=== PATIENT | male | born 1980 | race Caucasian/White ===

== ENCOUNTER → 2022-04-03 11:18 | Outpatient (BNVA) | payer MEDICAID, SELFPAY | PROVIDERS: PCP Family Medicine; Referring Provider Family Medicine; Visit Provider Internal Medicine Cardiovascular Disease | DX: R00.2 Palpitations (principal); R07.89 Other chest pain | CPT/HCPCS: 93005; 99202 ==

== ENCOUNTER 2024-12-31 10:23 | Outpatient (REF) | payer MEDICAID, SELFPAY ==
[2024-12-31 11:59] LABS: Hematocrit 36.5 % (42.0-52.0); Hemoglobin 12.2 g/dl (14.0-18.0); Mean Corpuscular HGB Conc 33.4 g/dl (31.0-36.0); Mean Corpuscular Hemoglobin 30.2 pg (27.0-33.0); Mean Corpuscular Volume 90.3 fL (80.0-98.0); NRBC Abs Auto 0.000 X10*3/uL (0.0-0.012); NRBC Pct Auto 0.0 /100WBC (0.0-0.2); Platelet Count 265 X10*3/uL (160-400); Red Blood Count 4.04 X10*6/uL (4.60-5.80); White Blood Count 6.2 X10*3/uL (4.8-10.8)
[2024-12-31 12:17] LABS: Total Hemoglobin (HGBA1C) 3240.8270 umol/L
[2024-12-31 12:18] LABS: Alanine Aminotransferase 64 U/L (0-40); Albumin Level 4.0 g/dL (3.5-5.0); Alkaline Phosphatase 57 U/L (39-117); Anion Gap 9 (12-20); Aspartate Amino Transferase 111 U/L (5-37); Blood Urea Nitrogen 22 mg/dL (9-16); Calcium 8.9 mg/dL (8.4-10.2); Carbon Dioxide 28 mmol/L (22-29); Chloride 108 mmol/L (96-108); Cholesterol 123 mg/dL (<200); Estimated Glomerular Filt Rate > 60; HDL Cholesterol 41 mg/dL (>40); Potassium 4.2 mmol/L (3.3-5.1); Sodium 141 mmol/L (135-145); Total Protein 6.3 g/dL (6.5-8.0); Triglycerides 89 mg/dL (<150)
[2024-12-31 12:37] LABS: Free T4 (Free Thyroxine) 0.88 ng/dL (0.71-1.85); Thyroid Stimulating Hormone 0.44 uIU/mL (0.32-4.0)
[2024-12-31 12:50] LABS: ~Hepatitis A Antibody IgG 4.03 S/CO (0.00-0.99)
[2024-12-31 16:00] LABS: Iron 128 mcg/dL (45-160); Percent Iron Saturation 54 % (15-50); Total Iron Binding Capacity 236 mcg/dL (228-428); Unsaturated Iron Binding 108 ug/dL
[2024-12-31 16:14] LABS: Ferritin 68 ng/mL (20-250)
[2025-01-01 04:16] LABS: HBS Num1 28.06 mIU/mL (0-7.99); HBc Num1 0.07 S/CO (0.00-0.79); HBsAGNum1 0.44 S/CO (0.00-0.99); HIV Num 1 0.10 S/CO (0.00-0.99); Hepatitis B Surface Antigen Negative (Negative); ~HepC Num1 0.11 S/CO (0.00-0.79); ~Hepatitis B Surface Antibody REACTIVE (Nonreactive); ~Hepatitis C Antibody Nonreactive (Nonreactive)
[2025-01-03 07:44] LABS: TS Negative Control Passed; TS Panel A 0; TS Panel B 0; TS Positive Control Passed; TSpotTB Negative (Negative)
== END 2024-12-31 10:24 | disposition home or self-care (01) ==
LOC: HO.HHCL 10:23
PROVIDERS: PCP Family Medicine; Visit Provider Family Medicine
DX: Z11.4 Encounter for screening for human immunodeficiency virus [HIV] (principal); Z11.1 Encounter for screening for respiratory tuberculosis; Z11.59 Encounter for screening for other viral diseases; Z11.3 Encounter for screening for infections with a predominantly sexual mode of transmission; L03.114 Cellulitis of left upper limb; N50.819 Testicular pain, unspecified; D64.9 Anemia, unspecified; G89.29 Other chronic pain
CPT/HCPCS: 36415; 80048; 80061; 80076; 82306; 82728; 83036; 83540; 84439; 84443; 85027; 86481; 86592; 86704; 86706; 86708; 86803; 87070; 87077; 87186; 87205; 87340; 87389

== ENCOUNTER 2025-02-11 10:11 | Outpatient (REF) | payer MEDICAID, SELFPAY ==
--- NOTE | ~2025-02-11 | XR_ITS ---
EXAMINATION: XR THORACIC SPINE CLINICAL INFORMATION: pain COMPARISON: None available. TECHNIQUE: AP lateral and swimmer's projection. FINDINGS: No acute cortical disruption or malalignment. Small marginal osteophyte formation in the mid to lower thoracic spine. No lytic or blastic lesions. Vascular clips right upper quadrant abdomen likely prior laparoscopic cholecystectomy. XR/XR thoracic spine 2V IMPRESSION: Mild lower thoracic spondylosis. EXAMINATION: XR LUMBOSACRAL SPINE CLINICAL INFORMATION: Mid back pain radiating to low back. COMPARISON: None available. TECHNIQUE: AP and lateral views. FINDINGS: Endplate sclerosis decreased intervertebral disc height and marginal osteophyte formation at L5-S1 and to a lesser extent L4-5 and L3-4 levels. Levoconvex curvature, mild. No acute cortical disruption or malalignment. Rudimentary ribs at T12. Vascular clips right upper quadrant abdomen. No lytic or blastic lesions. IMPRESSION: Multilevel spondylosis pronounced at L5-S1. Electronically signed by: Corey Quinonez MD 02/11/2025 11:48 AM VJ
--- NOTE | ~2025-02-11 | XR_ITS ---
EXAMINATION: XR THORACIC SPINE CLINICAL INFORMATION: pain COMPARISON: None available. TECHNIQUE: AP lateral and swimmer's projection. FINDINGS: No acute cortical disruption or malalignment. Small marginal osteophyte formation in the mid to lower thoracic spine. No lytic or blastic lesions. Vascular clips right upper quadrant abdomen likely prior laparoscopic cholecystectomy. XR/XR lumbar spine 2-3V IMPRESSION: Mild lower thoracic spondylosis. EXAMINATION: XR LUMBOSACRAL SPINE CLINICAL INFORMATION: Mid back pain radiating to low back. COMPARISON: None available. TECHNIQUE: AP and lateral views. FINDINGS: Endplate sclerosis decreased intervertebral disc height and marginal osteophyte formation at L5-S1 and to a lesser extent L4-5 and L3-4 levels. Levoconvex curvature, mild. No acute cortical disruption or malalignment. Rudimentary ribs at T12. Vascular clips right upper quadrant abdomen. No lytic or blastic lesions. IMPRESSION: Multilevel spondylosis pronounced at L5-S1. Electronically signed by: Corey Quinonez MD 02/11/2025 11:48 AM VJ
--- OUTSIDE RECORDS SUMMARY | 2025-02-11 09:30 | XMS_ITS | Encounter Summary ---
Author Organization [employer] Address [address] [place] [address] [address] [place] [address] Care Team Providers Care Mass Spectroscopist Name Role Phone Marixa Lopez DO Primary Care Provider Reason for Visit * Reason Comments Annual Exam Encounter Details Date Type Department Care Team ([facility] st Contact Info) Description 02/11/2025 9:30 AM EST Office Visit [facility] [address] [place], [place] [phone] Marixa Lopez DO [address] [place], [place] [phone] Routine history and physical examination of adult (Primary Dx); Major depression, recurrent, chronic (CMS/HCC); Anxiety; Uncomplicated opioid dependence (CMS/HCC) (HCC); Anemia, unspecified type; Elevated LFTs; Impetigo; Acute mid back pain; Decreased visual acuity; BMI 22.0-22.9, adult Social History Tobacco Use Types Packs/Day Years Used Date Smoking Tobacco: Former Cigarettes Alcohol Use Standard Drinks/Week Comments Never 0 (1 standard drink = 0.6 oz pur e alcohol) Depression Answer Date Recorded Patient Health Questionnaire-9 Score 13 12/31/2024 Patient Health Questionnaire-9 Score 13 12/31/2024 Last PHQ-9: Questionnaire Data Not on file 1 Housing Stability Answer Date Recorded What is your housing situation today? I have benjamin de luna 09/19/[address] you li ve. Do you have problems with any of the following? None of the above 09/19/2023 Food Insecurity Answer Date Recorded Within the past 12 months, y ou worried that your food would run out before you got money to buy more: Never True 09/19/2023 Within the past 12 months,th e food you bought just didn't last and you didn't have enough money to get more: Never True 02/2024 Transportation Answer Date Recorded In the past 12 months, has l ack of transportation kept you from medical appts, meetings, work or from getting things needed for daily living? No 09/19/2023 Utilities Answer Date Recorded In the past 12 months, has t he electric, gas, oil or water company threatened to shut off services in your home? No 09/19/2023 Depression Answer Date Recorded Patient Health Questionnaire-2 Score 2 12/31/2024 Internet Access Answer Date Recorded Internet Access Q1 Yes 11/10/2023 Internet Access Q2 Not on file 11/10/2023 Sex and Gender Information Value Date Recorded Sex Assigned at Male 01/07/2022 10:18 AM EDT Legal Sex Male 10:18 AM EDT Gender Identity Male 01/07/2022 10:18 AM EDT Sexual Orientation Straight 01/07/2022 10 :18 AM EDT documented as of this encounter Last Filed Vital Signs Vital Sign Reading Time Taken Comments Blood Pressure 120/60 02/11/2025 9:40 AM EST Pulse 60 02/11/2025 9:40 AM EST Temperature 36.2 C (97.1 F) 02/11/2025 9:40 AM EST Respiratory Rate 20 02/11/2025 9:40 AM EST Oxygen Saturation - - Inhaled Oxygen Concentration - - Weight 57.6 kg (127 lb) 02/11/2025 9:40 AM EST Height 160 cm (5' 3 ) 02/11/2025 9:40 AM EST Body Mass Index 22.5 02/11/2025 9:40 AM EST documented in this encounter Plan of Treatment Scheduled Orders Name Type Priority Associated Diagnoses Orde r Schedule XR Thoracic Spine 2 Views Imaging Routine Acute mid back pain Expected: 02/11/2025, Expires: 02/11/2026 XR Lumbar Spine 2-3 Views Imaging Routine Acute mid back pain Expected: 02/11/2025, Expires: 02/11/2026 documented as of this encounter Visit Diagnoses Diagnosis Routine history and physical examination of adult- Primary Major depression, recurrent, chronic (CMS/HCC) Anxiety Anxiety state, unspecified Uncomplicated opioid dependence (CMS/HCC) (HCC) Anemia, unspecified type Elevated LFTs Other abnormal blood chemistry Impetigo Acute mid back pain Decreased visual acuity BMI 22.0-22.9, adult documented in this encounter Additional Health Concerns Assessment Noted Time PHQ-9 Depression Total Score: 13 12/31/ 025 10:00 AM EDT documented as of this encounter Care Teams Mass Spectroscopist Relationship Specialty Start Date End Date Marixa Lopez DO [address] [place] [id number] PCP - General Family Medicine 03/10/18 documented as of this encounter
[2025-02-11 11:25] LABS: MANUAL DIFF FLAG NO
--- OUTSIDE RECORDS SUMMARY | 2025-02-11 11:36 | XMS_ITS | Clinical Summary ---
Author Organization [employer] Address [address] [facility] [address] [place] [address] Care Team Providers Care Lipstick Molder Name Role Phone JessicaMarixa Primary Care Provider [phone] Allergies No known active allergies Medications sulfamethoxazol e-trimethoprim (Bactrim DS) 800-160 MG tablet Take 1 tablet by mouth 2 times daily for 7 days. 14 tablet 5 02/19/20 25 Active acetaminophen (Tylenol 8 Hour) 650 MG ER tablet Take 1 tablet (650 mg) by mouth every 8 (eight) hours if needed for mild pain. Do not crush, chew, or split. 40 tablet 1 5 03/13/19 26 Active naproxen (Naprosyn) 500 MG tablet Take 1 tablet (500 mg) by mouth if needed in the morning and at bedtime for mild pain. 40 tablet 1 5 02/12/20 26 Active Diclofenac Sodium 1 % gel Apply 2 g topically if needed in the morning, at noon, in the evening, and at bedtime (pain). 150 g 3 5 Active baclofen (Lioresal) 10 MG tablet Take 1 tablet (10 mg) by mouth if needed in the morning, at noon, and at bedtime for muscle spasms. 60 tablet 1 5 04/12/19 26 Active sulfamethoxazol e-trimethoprim (Bactrim DS) 800-160 MG tablet Take 1 tablet by mouth 2 times daily for 7 days. 14 tablet 5 01/13/20 25 Active Problems Problem Noted Date Diagnosed Date Drug-induced constipation 09/12/2023 Cocaine abuse 07/08/2017 Opioid dependence 07/08/2017 Vitamin D deficiency 06/19/2015 Anxiety 04/21/2015 Chronic low back pain 04/21/2015 Gastroesophageal reflux disease 04/21/2015 Alcohol dependence 04/21/2015 BMI 22.0-22.9, adult 04/21/2015 Major depression, recurrent, chronic 04/21/2015 Resolved Problems Problem Noted Date Diagnosed Date Resolved Date Testicular pain, right 09/12/202312/31 Testicular pain, left 09/12/20232024 Assessment & Plan (09/16/2023 7:36 AM EDT): Patient with acute onset of testicular pain two days previous with swelling/tenderness of epidydimal head. He needs urgent imaging to rule out torsion or mass, which cannot be done from outpatient setting due to insurance - referred urgently to ER -recommend tight boxer briefs/jock strap for support - NSAID/Tylenol combination for better pain control - followup after ER as needed, could be referred to [facility] if indicated based on imaging results Encounters Date Type Department Care Team Description 02/11/2025 9:30 AM EST Office Visit [address] [address] Marixa Lopez, Routine history and physical examination of adult (Primary Dx); Major depression, recurrent, chronic (CMS/HCC); Anxiety; Uncomplicated opioid dependence (CMS/HCC) (HCC); Anemia, unspecified type; Elevated LFTs; Impetigo; Acute mid back pain; Decreased visual acuity; BMI 22.0-22.9, adult 02/11/2025 Travel 02/09/2025 Telephone [facility] [address] [place] [phone] Marixa Lopez, Chart Prep 01/31/[address] [address] Marixa Lopez, Aidan recall 01/16/[address] [address] Marixa Lopez, Results 01/05/[address] [address] Marixa Lopez DO 12/31/2024 9:30 AM EDT Office Visit [facility] [address] [place] [phone] Marixa Lopez, Cellulitis of left forearm (Primary Dx); Chronic pain in testicle; Major depression, recurrent, chronic (CMS/HCC) 12/31/2024 Orders Only [facility] [address] [place] [phone] Marixa Lopez, 12/31/2024 Telephone [facility] [address] [place] [phone] Marixa Lopez, Results 12/31/2024 Travel 12/30/[address] [address] Marixa Lopez DO Nurse Triage from Last 3 Months Immunizations Immunization Administration Dates Next Due Hep A, ped/adol, 2 dose 10/18/2008,08/06/2007 Hep B, Adolescent or Pediatric 11/17/2008,2008,08/06/2007 Influenza, IIV3, injectable 12/26/2008 MMR 02/13/2010 TD (adult), 2 Lf tetanus tox oid, preservative free, adsorbed 08/06/2007 Tdap 04/23/2021,05/28/2010 Family History Medical History Relation Name Comments Substance use Father Diabetes Maternal Grandmother Heart disease Maternal Grandmother HIV Mother Diabetes Mother's Sister Relation Name Status Comments Father Maternal Grandmother Mother Mother's Sister Social History Tobacco Use Types Packs/Day Years Used Date Smoking Tobacco: Former Cigarettes Tobacco Cessation:Counseling Given: Not Answered Alcohol Use Standard Drinks/Week Comments Never 0 [...] Orientation Straight 01/07/2022 10 :18 AM EDT Last Filed Vital Signs Vital Sign Reading Time Taken Comments Blood Pressure 120/60 02/11/2025 9:40 AM EST Pulse 60 02/11/2025 9:40 AM EST Temperature 36.2 C (97.1 F) 02/11/2025 9:40 AM EST Respiratory Rate 20 02/11/2025 9:40 AM EST Oxygen Saturation 97% 12/31/2024 9:56 AM EDT Inhaled Oxygen Concentration - - Weight 57.6 kg (127 lb) 02/11/2025 9:40 AM EST Height 160 cm (5' 3 ) 02/11/2025 9:40 AM EST Body Mass Index 22.5 02/11/2025 9:40 AM EST Plan of Treatment Health Maintenance Due Date Last Done Comments Disability Screening 1982 Alcohol/Substance Use Screening 1994 Family Planning (PISQ) 1997 HPV Vaccines (1 - Male 3-dos e series) 1997 Hepatitis B Vaccines (1 of 3 - 19+ 3-dose series) 2001 11/17/2008, 10/18/2008, 08/06/2007 Pneumococcal Vaccine: Pediatrics (0 to 5 Years) and At-Risk Patients (6 to 49) Years (1 of 2 - PCV) 2001 SDOH Screening 09/18/2024 09/19/2023 COVID-19 Vaccine (2 - 2024-2 6 season) 2024 02/11/2021 Influenza Vaccine (#1) 2024 12/26/2008 Depression Monitoring 07/01/2025 12/31/2024 , 12/31/2024 Tobacco Screening 02/11/2026 02/11/2025 Lipid Panel 12/31/2029 12/31/2024, 04/23/2021 DTaP/Tdap/Td Vaccines (3 - T d or Tdap) 04/23/2031 04/23/2021, 05/28/2010, 08/06/2007 Zoster Vaccines (1 of 2) 2032 RSV Patients and Patients Aged 60 years or older (1 - 1-dose 75+ series) 2057 Hepatitis A Vaccines Aged Out 10/18/2008, 08/06/2007 No longer eligible based on patient's age to complete this topic HIV Screening Completed 12/31/2024, 04/23/2021 Hepatitis C Screening Completed 12/31/2024 , 04/23/2021 HIB Vaccines Aged Out No longer eligi ble based on patient's age to complete this topic IPV Vaccines Aged Out No longer eligi ble based on patient's age to complete this topic Meningococcal B Vaccine Aged Out No l onger eligible based on patient's age to complete this topic Meningococcal Vaccine Aged Out No nicole katheryn eligible based on patient's age to complete this topic RSV under 20 months Aged Out No longe r eligible based on patient's age to complete this topic Rotavirus Vaccines Aged Out No longer eligible based on patient's age to complete this topic Procedures Procedure Name Priority Date/Time Associated Diagnosis Comments GRAM STAIN RESULT (NON ORDERABLE) Routine 12/31/2024 1:16 PM EDT WOUND CULTURE Routine 12/31/2024 1:16 PM EDT IRON AND TOTAL IRON BINDING CAPACITY Routine 12/31/2024 10:31 AM EDT Low hemoglobin FERRITIN Routine 12/31/2024 10:31 AM EDT Low hemoglobin T-SPOT(R).TB Routine 12/31/2024 10:31 AM EDT Cellulitis of left forearm Chronic pain in testicle HEPATITIS B CORE AB TOTAL Routine 12/31/2024 10:31 AM EDT Cellulitis of left forearm Chronic pain in testicle HEPATITIS A ANTIBODY, TOTAL Routine 12/31/2024 10:31 AM EDT Cellulitis of left forearm Chronic pain in testicle HEPATITIS B SURFACE ANTIBODY, QUALITATIVE Routine 12/31/2024 10:31 AM EDT Cellulitis of left forearm Chronic pain in testicle RPR (MONITOR) W/REFL TITER Routine 12/31/2024 10:31 AM EDT Cellulitis of left forearm Chronic pain in testicle HEPATITIS C AB W/REFL TO HCV RNA, QN, PCR Routine 12/31/2024 10:31 AM EDT Cellulitis of left forearm Chronic pain in testicle HIV 1/2 ANTIGEN/ANTIBODY, FOURTH GENERATION W/RFL Routine 12/31/2024 10:31 AM EDT Cellulitis of left forearm Chronic pain in testicle HEPATITIS B SURFACE ANTIGEN, EIA Routine 12/31/2024 10:31 AM EDT Cellulitis of left forearm Chronic pain in testicle BASIC METABOLIC PANEL Routine 12/31/2024 10:31 AM EDT Cellulitis of left forearm Chronic pain in testicle CBC Routine 12/31/2024 10:31 AM EDT Cellulitis of left forearm Chronic pain in testicle HEMOGLOBIN A1C Routine 12/31/2024 10:31 AM EDT Cellulitis of left forearm Chronic pain in testicle HEPATIC FUNCTION PANEL Routine 12/31/2024 10:31 AM EDT Cellulitis of left forearm Chronic pain in testicle VITAMIN D,25-OH,TOTAL,IA Routine 12/31/2024 10:31 AM EDT Cellulitis of left forearm Chronic pain in testicle TSH Routine 12/31/2024 10:31 AM EDT Cellulitis of left forearm Chronic pain in testicle LIPID PANEL, STANDARD Routine 12/31/2024 10:31 AM EDT Cellulitis of left forearm Chronic pain in testicle T4, FREE Routine 12/31/2024 10:31 AM EDT Cellulitis of left forearm Chronic pain in testicle from Last 3 Months Results * Gram Stain Result (12/31/2024 1:16 PM EDT) 12/31/2024 1:16 PM EDT 12/31/2024 5:04 PM EDT Comment:Arm Lt Narrative [facility] - 01/02/2025 8:03 AM EDT CELLULITIS OF LEFT FOREARM Gram stain results: 1+ polys 3+ epithelial cells 2+ Gram-positive cocci CELLULITIS OF LEFT FOREARM Staphylococcus aureus Quant Org ID 2+ Staphylococcus aureus: Clindamycin <=0.25(S) Staphylococcus aureus: Erythromycin <=0.25(S) Staphylococcus aureus: Levofloxacin <=0.12(S) Staphylococcus aureus: Oxacillin 0.5(S) Staphylococcus aureus: Penicillin-G >=0.5(R) Staphylococcus aureus: Tetracycline <=1(S) Staphylococcus aureus: Trimethoprim/Sulfamethoxazole <=10(S) Specimen Source: Arm Left us Marixa Lopez DO HISTORICAL/NON ORDERABLE LAB S Final Result [facility] [address] [place] [phone] * (ABNORMAL) Vitamin D, 25-Hydroxy, Total, Immunoassay (12/31/2024 10:31 AM EDT) Vitamin D 25-OH Total 25.6(L) >30 ng/mL [facility] Comment: Health Based Reference Values*< 20 ng/mL Zgzkasnwd44-24 ng/mL Insufficient> 30 ng/mL Sufficient*Roberto HILL. N Engl J Med. 2007;357:266-280There is no well-established upper level of normal vitamin Dlevels. Some laboratories use 50 ng/mL as an upper limit ofnormal. However, toxicity is patient-dependent and may occurat any level. Careful correlation with the patient'spresentation is necessary and, if there is concern forvitamin D toxicity, treatment should be consideredirrespective of the serum level.Care must be taken in interpreting Vitamin D results fromdifferent laboratories and methodologies. Published datademonstrated that results from patients undergoinghemodialysis may show a negative bias when tested withvarious automated 25-OH vitamin D assays when compared toLC-MS/MS.When testing samples from patients whose predominant form ofVitamin D is Vitamin D2, such as patients receiving VitaminD2 supplementation, results that are subtherapeutic shouldbe confirmed with another method such as LC-MS/MS. Blood Venous blood specimen / Unknown 12/31/2024 10:31 AM EDT 12/31/2024 11:36 AM EDT us Marixa Lopez DO LAB BLOOD ORDERABLES Final R esult [facility] [address] [place] [phone] * T-SPOT??.TB (12/31/2024 10:31 AM EDT) Pathologist [facility] T Spot TB Negative Negative [facility] Comment:A negative test resu lt does not exclude the possibilityof exposure to or infection with Mycobacteriumtuberculosis (M. tuberculosis). Patients with recentexposure to TB infected individuals exhibiting anegative T-SPOT.TB result should be considered forretesting within 6 weeks or if other relevant clinicalsymptoms indicate. Results from T-SPOT.TB testing mustbe used in conjunction with each individual'sepidemiological history, current medical status,and results of other diagnostic evaluations.The T-SPOT.TB test is qualitative and results arereported as positive, borderline, or negative, giventhat the test controls perform as expected. In linewith the Centers for Disease Control and Prevention's2010 recommendation to report quantitative measurementsalongside the qualitative result, the laboratoryprovides spot counts for informational purposes only.The T-SPOT.TB test should not be interpreted as aquantitative test. TS PANEL A 0 [facility] TS PANEL B 0 [facility] Negative Control Passed [facility] Positive Control Passed [facility] Comment:For additional infor mation, please refer [email or web address](This link is being provided for informational/educational purposes only.)THIS TEST WAS PERFORMED AT:[facility] [id number] [place] [id number] ORELLANA MD,PHD 12/31/2024 10:3 1 AM EDT 12/31/2024 11:36 AM EDT Marixa Lopez LAB BLOOD ORDERABLES Final R esult Performing Organization Address [facility] Co de Phone Number [facility] [address] [place] [phone] * Hepatitis C Antibody with Reflex to HCV, RNA, Quantitative, Real-Time PCR (12/31/2024 10:31 AM EDT) Hepatitis C Antibody Nonreactive Nonreactive [facility] Comment:Antibodies to HCV no t detected; does not exclude early acuteHCV infection. Blood Venous blood specimen / Unknown 12/31/2024 10:31 AM EDT 12/31/2024 11:36 AM EDT Marixa Lopez DO LAB BLOOD ORDERABLES Final R esult Performing Organization Address City/[facility] Co de Phone Number [facility] [address] [place] [phone] * (ABNORMAL) Iron And Total Iron Binding Capacity (12/31/2024 10:31 AM EDT) Iron 128 45 - 160 mcg/dL [facility] Total Iron Binding Capacity 236 228 - 428 mcg/dL [facility] Percent Iron Saturation 54(H) 15 - 50 % [facility] Unsaturated Iron Binding 108 ug/dL [facility] Blood Venous blood specimen / Unknown 12/31/2024 10:31 AM EDT 12/31/2024 11:36 AM EDT Marixa Lopez DO LAB BLOOD ORDERABLES Final R esult Performing Organization Address City/[facility]/ZIP Co de Phone Number [facility] [address] [place] [phone] * Hepatitis A Antibody, Total (12/31/2024 10:31 AM EDT) Pathologist [facility] Hepatitis A Antibody IgG REACTIVE Nonreactive [facility] Comment:The presence of IgG anti-HAV implies past HAV infection(recent or distant) or vaccination against HAV. Blood Venous blood specimen / Unknown 12/31/2024 10:31 AM EDT 12/31/2024 11:36 AM EDT Marixa Lopez DO LAB BLOOD ORDERABLES Final R esult [facility] [address] [place] [phone] * Hepatitis B surface antigen, EIA (12/31/2024 10:31 AM EDT) Pathologist [facility] Hepatitis B Surface Ag Negative Negative [facility] Blood Venous blood specimen / Unknown 12/31/2024 10:31 AM EDT 12/31/2024 11:36 AM EDT Marixa Jessica DO LAB BLOOD ORDERABLES Final R esult Performing Organization Address City/[facility]/ZIP Co de Phone Number [facility] [address] [place] [phone] * Hepatitis B Core Antibody, Total (12/31/2024 10:31 AM EDT) Hepatitis B Core Antibody Nonreactive Nonreactive [facility] Blood Venous blood specimen / Unknown 12/31/2024 10:31 AM EDT 12/31/2024 11:36 AM EDT Marixa Jessica DO LAB BLOOD ORDERABLES Final R esult Performing Organization Address [facility] Co de Phone Number [facility] [address] [place] [phone] * RPR (Monitor) with Reflex to??Titer (12/31/2024 10:31 AM EDT) RPR (Monitor) w/Refl Titer NON-REACTI VE NON-REACT PAGE [facility] Comment:THIS TEST WAS PERFOR MED AT:[facility] [address] [place] [id number] BROWNING MD Rapid Plasma Reagin Ab Titer TNP [facility] Blood Venous blood specimen / Unknown 12/31/2024 10:31 AM EDT 12/31/2024 11:36 AM EDT us Marixa Jessica DO LAB BLOOD ORDERABLES Final R esult Performing Organization Address [facility]/ZIP Co de Phone Number [facility] [address] [place] [phone] * HIV-1/2 Antigen and Antibodies, Fourth Generation, with Reflexes (12/31/2024 10:31 AM EDT) HIV AB/AG Nonreactive Nonreactive [facility] Comment:HIV-1 p24 Ag and/or HIV-1/HIV-2 Ab not detected.A test result that is nonreactive does not exclude thepossibility of exposure to or infection with HIV-1 and/orHIV-2. Nonreactive results in this assay for individualswith prior exposure to HIV-1 and/or HIV-2 may be due toantigen and antibody levels that are below the limit ofdetection of this assay.The [employer] HIV Ag/Ab Combo assay result andsupplemental assay results should be interpreted inconjunction with the patient's clinical presentation,history and other laboratory results. If the results areinconsistent with clinical evidence, additional testing issuggested to confirm the result. Blood Venous blood specimen / Unknown 12/31/2024 10:31 AM EDT 12/31/2024 11:36 AM EDT Marixa Lopez LAB BLOOD ORDERABLES Final R esult Performing Organization Address City/[facility]/ZIP Co de Phone Number [facility] [address] [place] [phone] * Hepatitis B Surface Antibody, Qualitative (12/31/2024 10:31 AM EDT) [facility] ~Hepatitis B Surface Antibody REACTIVE Nonreactive [facility] Comment:REACTIVE: > 11.99 mI U/mL Blood Venous blood specimen / Unknown 12/31/2024 10:31 AM EDT 12/31/2024 11:36 AM EDT [facility] BLOOD ORDERABLES Final R esult Performing Organization Address City/[facility]/ZIP Co de Phone Number [facility] [address] [place] [phone] * (ABNORMAL) CBC (12/31/2024 10:31 AM EDT) [facility] White Blood Count 6.2 4.8 - 10.8 X10*3/uL [facility] Red Blood Count 4.04(L) 4.60 - 5.80 X10*6/uL [facility] Hemoglobin 12.2(L) 14.0 - 18.0 g/dl [facility] Hematocrit 36.5(L) 42.0 - 52.0 % [facility] Mean Corpuscular Volume 90.3 80.0 - 98.0 fL [facility] Mean Corpuscular Hemoglobin 30.2 27.0 - 33.0 pg [facility] Mean Corpuscular HGB Conc 33.4 31.0 - 36.0 g/dl [facility] Red Cell Distribution Width 12.1 11.0 - 16.0 % [facility] Platelet Count 265 160 - 400 X10*3/uL [facility] Mean Platelet Volume 10.3 9.4 - 12.4 fL [facility] NRBC Pct Auto 0.0 0.0 - 0.2 /100WBC [facility] NRBC Abs Auto 0.000 0.0 - 0.012 X10*3/uL [facility] Blood Venous blood specimen / Unknown 12/31/2024 10:31 AM EDT 12/31/2024 11:36 AM EDT us Marixa Lopez DO LAB BLOOD ORDERABLES Final R esult Performing Organization Address City/[facility]/ZIP Co de Phone Number [facility] [address] [place] [phone] * TSH (12/31/2024 10:31 AM EDT) Thyroid Stimulating Hormone 0.44 0.32 - 4.0 uIU/mL [facility] Comment:TSH 3rd Generation ( [facility]) Blood Venous blood specimen / Unknown 12/31/2024 10:31 AM EDT 12/31/2024 11:36 AM EDT us Marixa Lopez DO LAB BLOOD ORDERABLES Final R esult [facility] [address] [place] [phone] * T4, Free (12/31/2024 10:31 AM EDT) Free T4 (Free Thyroxine) 0.88 0.71 - 1.85 ng/dL [facility] Blood Venous blood specimen / Unknown 12/31/2024 10:31 AM EDT 12/31/2024 11:36 AM EDT Marixa Lopez DO LAB BLOOD ORDERABLES Final R esult Performing Organization Address City/[facility]/ZIP Co de Phone Number [facility] [address] [place] [phone] * Hemoglobin A1c (12/31/2024 10:31 AM EDT) Hemoglobin A1c 5.1 <6.0 % [facility] Comment:Hemoglobin A1C Refer ence Range Adults: 4.8 - 6.0 % Non diabetic: < 6.0 % Goal: < 7.0 %Additional Action Suggested: > 8.0 %Note: Hemoglobin A1c results are invalid for patients with abnormal amounts of HbF. Blood transfusions may impact the HbA1c concentration in the patient sample. Estimated Average Glucose 100 mg/dL [facility] Comment:eAG = Estimated ave rage glucose which is %A1C expressed asaverage glucose, using the formula of the [id number]-[id number] Glucose study (ADAG), Diabetes Care, Vol.31,#8,2007 Blood Venous blood specimen / Unknown 12/31/2024 10:31 AM EDT 12/31/2024 11:36 AM EDT us Marixa Lopez DO LAB BLOOD ORDERABLES Final R esult Performing Organization Address City/[facility]/ZIP Co de Phone Number [facility] [address] [place] [phone] * Ferritin (12/31/2024 10:31 AM EDT) Ferritin 68 20 - 250 ng/mL [facility] Blood Venous blood specimen / Unknown 12/31/2024 10:31 AM EDT 12/31/2024 11:36 AM EDT Marixa Lopez DO LAB BLOOD ORDERABLES Final R esult Performing Organization Address City/[facility]/ZIP Co de Phone Number [facility] [address] [place] [phone] * (ABNORMAL) Hepatic Function Panel (12/31/2024 10:31 AM EDT) Bilirubin, Total 0.3 0.0 - 1.0 mg/dL [facility] Bilirubin, Direct 0.1 0.0 - 0.5 mg/dL [facility] Aspartate Amino Transferase 111(H) 5 - 37 U/L [facility] Alanine Aminotransferase 64(H) 0 - 40 U/L [facility] Total Protein 6.3(L) 6.5 - 8.0 g/dL [facility] Albumin Level 4.0 3.5 - 5.0 g/dL [facility] Alkaline Phosphatase 57 39 - 117 U/L [facility] Blood Venous blood specimen / Unknown 12/31/2024 10:31 AM EDT 12/31/2024 11:36 AM EDT Marixa Lopez DO LAB BLOOD ORDERABLES Final R esult Performing Organization Address City/[facility]/ZIP Co de Phone Number [facility] [address] [place] [phone] * Lipid Panel, Standard (12/31/2024 10:31 AM EDT) Triglycerides 89 <150 mg/dL [facility] Comment:Desirable Triglyceri de: less than 150 mg/dLBorderline High Triglyceride 150-199 mg/dLHigh Triglyceride: 200-499 mg/dLVery High Triglyceride: greater than or equal to 5OO mg/dL Cholesterol 123 <200 mg/dL [facility] Comment:Desirable Cholestero l: less than 200 mg/dLBorderline High Cholesterol: 200-239 mg/dLHigh Cholesterol: greater than 239 mg/dL LDL Cholesterol Calculated 65 <100 mg/dL [facility] Comment:Desirable LDL: less than 100 mg/dLNear Optimal/Above Optimal LDL: 110- 129 mg/dLBorderline High LDL: 130-159 mg/dLHigh LDL: 160-189 mg/dLVery High LDL: greater than or equal to 190 mg/dL HDL Cholesterol 41 >40 mg/dL [facility] Comment:Desirable HDL: great er than 40 mg/dL Note: This HDL assay may give artificially low results in patients with liver disease. Blood Venous blood specimen / Unknown 12/31/2024 10:31 AM EDT 12/31/2024 11:36 AM EDT us Marixa Lopez DO LAB BLOOD ORDERABLES Final R esult [facility] [address] [place] [phone] * (ABNORMAL) Basic Metabolic Panel (12/31/2024 10:31 AM EDT) Sodium 141 135 - 145 mmol/L [facility] Potassium 4.2 3.3 - 5.1 mmol/L [facility] Chloride 108 96 - 108 mmol/L [facility] Carbon Dioxide 28 22 - 29 mmol/L [facility] Anion Gap 9(L) 12 - 20 [facility] Urea Nitrogen (BUN) 22(H) 9 - 16 mg/dL [facility] Creatinine, Serum 0.89 0.5 - 1.4 mg/dL [facility] Estimated Glomerular Filt Rate >60 [facility] Comment:Chronic Kidney Disea se: Estimated GFR < 60 mL/min/[id number] Kidney Disease: Estimated GFR < 15 mL/min/1.73m2 Glucose 109 60 - 115 mg/dL [facility] Calcium 8.9 8.4 - 10.2 mg/dL [facility] Blood Venous blood specimen / Unknown 12/31/2024 10:31 AM EDT 12/31/2024 11:36 AM EDT Marixa Lopez DO LAB BLOOD ORDERABLES Final R esult [facility] [address] [place] [address] [phone] from Last 3 Months Insurance [facility] Care Teams Lipstick Molder Relationship Specialty Start Date End Date Marixa Lopez DO [address] [place] [id number] PCP - General Family Medicine 03/10/18
--- OUTSIDE RECORDS SUMMARY | 2025-02-11 11:36 | XMS_ITS | Encounter Summary ---
Author Organization [employer] Address [address] [facility] [address] [place] [address] Care Team Providers Care Rehabilitation Counselor Name Role Phone Marixa Lopez DO Primary Care Provider Reason for Visit * Reason Onset Date Comments Nurse Triage 08/03/2024 Encounter Details Date Type Department Care Team ([facility] st Contact Info) Description 08/03/2024 Telephone [facility] MED[facility]INE [address] [place], [place] [phone] Marixa Lopez DO [address] [place] [address] Nurse Triage Social History Tobacco Use Types Packs/Day Years Used Date Smoking Tobacco: Unknown Housing Stability Answer Date Recorded What is [...] off services in your home? No 09/19/2023 Internet Access Answer Date Recorded Internet Access Q1 Yes 11/10/2023 Internet Access Q2 Not on file 11/10/2023 Sex and Gender Information Value Date Recorded Sex Assigned at Male 01/07/2022 10:18 AM EDT Legal Sex Male 10:18 AM EDT Gender Identity Male 01/07/2022 10:18 AM EDT Sexual Orientation Straight 01/07/2022 10 :18 AM EDT documented as of this encounter Miscellaneous Notes * Telephone Encounter - Chiqui Bennett - 08/03/2024 2:59 PM EDT Symptoms: Numbness (hand) , Back Pain - Not From Injury Outcome: Schedule an appointment to be seen within 3 days Reason: Caller denied all higher acuity questions The caller accepted this outcome. [phone] documented in this encounter Plan of Treatment Not on file documented as of this encounter Visit Diagnoses Not on filedocumented in this encounter Care Teams Rehabilitation Counselor Relationship Specialty Start Date End Date Marixa Lopez DO [address] [place] [address] PCP - General Family Medicine 03/10/18 documented as of this encounter
--- OUTSIDE RECORDS SUMMARY | 2025-02-11 11:36 | XMS_ITS | Encounter Summary ---
Author Organization [employer] Address [address] [facility] [address] [place] [address] Care Team Providers Care Film Composer Name Role Phone EsauMarixa bowman Primary Care Provider [phone] Encounter Details Date Type Department Care Team (Latest Contact Info) Description 02/11/2025 Travel Social History Tobacco Use Types Packs/Day Years [...] AM EDT documented as of this encounter Plan of Treatment Not on file documented as of this encounter Visit Diagnoses Not on filedocumented in this encounter Additional Health Concerns Assessment Noted Time PHQ-9 Depression Total Score: 13 025 10:00 AM EDT documented as of this encounter Care Teams Film Composer Relationship Specialty Start Date End Date Marixa Lopez DO [address] [place] [address] PCP - General Family Medicine 03/10/18 documented as of this encounter
--- OUTSIDE RECORDS SUMMARY | 2025-02-11 11:36 | XMS_ITS | Encounter Summary ---
Author Organization [employer] Address [address] [facility] [address] [place] [address] Care Team Providers Care Director Oracle Database Name Role Phone Marixa Lopez DO Primary Care Provider [phone] Reason for Visit * Reason Onset Date Comments Chart Prep 02/09/2025 Encounter Details Date Type Department Care Team ([facility] Contact Info) Description 02/09/2025 Telephone [facility]INE [address] [place], [place] [phone] Marixa Lopez DO [address] [place] [address] Chart Prep Social History Tobacco Use Types Packs/Day Years [...] encounter Miscellaneous Notes * Telephone Encounter - Aye Landa [place] - 02/09/2025 9:17 AM EST Chart Prep Labs: done Images: US Scrotum-02/17/25([facility]) Referrals: [facility]-03/17/25 Vaccines due: Covid, Flu, PCV20, Hep B, and HPV Screenings: PISQ Overdue care gaps: SBIRT, SDOH, PHQ-9, SANCHEZ-7, and Disability screen documented in this encounter Plan of Treatment Not on file documented as of this encounter Visit Diagnoses Not on filedocumented in this encounter Additional Health Concerns Assessment Noted Time PHQ-9 Depression Total Score: 13 025 10:00 AM EDT documented as of this encounter Care Teams Director Oracle Database Relationship Specialty Start Date End Date Marixa Lopez DO [address] [place] [address] PCP - General Family Medicine 03/10/18 documented as of this encounter
[2025-02-11 11:49] LABS: Hematocrit 37.1 % (42.0-52.0); Hemoglobin 12.2 g/dl (14.0-18.0); Imm Gran Abs Auto 0.01 X10*3/uL (0.00-0.03); Imm Gran Pct Auto 0.2 % (0.0-0.4); Lymphocytes Absolute Auto 1.5 X10*3/uL (1.2-4.9); Mean Corpuscular HGB Conc 32.9 g/dl (31.0-36.0); Mean Corpuscular Hemoglobin 30.2 pg (27.0-33.0); Mean Corpuscular Volume 91.8 fL (80.0-98.0); NRBC Abs Auto 0.000 X10*3/uL (0.0-0.012); NRBC Pct Auto 0.0 /100WBC (0.0-0.2); Platelet Count 248 X10*3/uL (160-400); Red Blood Count 4.04 X10*6/uL (4.60-5.80); White Blood Count 6.4 X10*3/uL (4.8-10.8)
[2025-02-11 14:22] LABS: Alanine Aminotransferase 20 U/L (0-40); Albumin Level 4.0 g/dL (3.5-5.0); Alkaline Phosphatase 70 U/L (39-117); Anion Gap 12 (12-20); Aspartate Amino Transferase 28 U/L (5-37); Blood Urea Nitrogen 26 mg/dL (9-16); Calcium 8.8 mg/dL (8.4-10.2); Carbon Dioxide 27 mmol/L (22-29); Chloride 108 mmol/L (96-108); Estimated Glomerular Filt Rate > 60; Ferritin 69 ng/mL (20-250); Iron 61 mcg/dL (45-160); Percent Iron Saturation 28 % (15-50); Potassium 4.6 mmol/L (3.3-5.1); Sodium 142 mmol/L (135-145); Total Iron Binding Capacity 216 mcg/dL (228-428); Total Protein 6.2 g/dL (6.5-8.0); Unsaturated Iron Binding 155 ug/dL
== END 2025-02-11 10:12 | disposition home or self-care (01) ==
LOC: HO.HHCL 10:11
PROVIDERS: PCP Family Medicine; Visit Provider Family Medicine
DX: M54.6 Pain in thoracic spine (principal); D64.9 Anemia, unspecified; R79.89 Other specified abnormal findings of blood chemistry
CPT/HCPCS: 36415; 72070; 72100; 80048; 80076; 82728; 83540; 85025

== ENCOUNTER → 2025-02-11 10:30 | Outpatient (BNV) | payer MEDICAID, SELFPAY | PROVIDERS: PCP Family Medicine; Visit Provider Radiology Diagnostic Radiology | DX: M47.817 Spondylosis without myelopathy or radiculopathy, lumbosacral region (principal); M47.814 Spondylosis without myelopathy or radiculopathy, thoracic region | CPT/HCPCS: 72070; 72100 ==